=== PATIENT | female | born 2000 | race Caucasian/White ===

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

== ENCOUNTER 2023-01-14 10:29 | Emergency (ER) | payer BC ==
[2023-01-14 10:35] VITALS: BP 96/63; PULSE 73; RESP 18; TEMP 97.8; BMI 19.7
== END 2023-01-14 11:10 | disposition home or self-care (01) ==
LOC: FER 10:29
PROC: 09C13ZZ Extirpation of Matter from Left External Ear, Percutaneous Approach (ICD-10-PCS; principal; 2023-01-14)
DX: S01.342A Puncture wound with foreign body of left ear, initial encounter (principal); W45.8XXA Other foreign body or object entering through skin, initial encounter
CPT/HCPCS: 99283-25